=== PATIENT | female | born 1990 | race Caucasian/White ===

== ENCOUNTER 2020-06-01 12:43 | Emergency (ER) | payer MEDICAID, OTHER ==
[~2020-06-01] VITALS: Ht 167.6 cm; Wt 86.0 kg
[~2020-06-01 12:43] MED LIST: CARB15DR91 EACH EAR
[2020-06-01 13:00] VITALS: BP 110/65
[2020-06-01] MEDS ORDERED: HYDR-4353 PO (14:34)
--- NOTE | 2020-06-01 14:50 | NUR ---
pt seen and dc'd by provider
== END 2020-06-01 14:45 | disposition home or self-care (01) ==
LOC: ER 12:44
DX: S92.201A Fracture of unspecified tarsal bone(s) of right foot, initial encounter for closed fracture (principal); M79.671 Pain in right foot; M79.89 Other specified soft tissue disorders; Z88.2 Allergy status to sulfonamides; Z79.899 Other long term (current) drug therapy; X58.XXXA Exposure to other specified factors, initial encounter; Y93.89 Activity, other specified; Y92.89 Other specified places as the place of occurrence of the external cause; Y99.8 Other external cause status
CPT/HCPCS: 29515; 73630; 99283